=== PATIENT | female | born 1965 | race Caucasian/White ===

== ENCOUNTER → 2021-02-09 | Outpatient (REF) ==
--- NOTE | 2021-02-09 16:22 | REP ---
INDICATION: ARTHRITIS. COMPARISON: None. TECHNIQUE: Three views were obtained FINDINGS: Normal alignment. No fracture. Narrowing C4-5, C5-6 C6-7 disc spaces. Uncovertebral/facet hypertrophy. Upper lungs clear. IMPRESSION: Spondylosis. Normal alignment. No fractures. <Electronically signed by Geremias Weiner > 02/09/21 [id number]
--- NOTE | 2021-02-09 16:56 | REP ---
INDICATION: ARTHRITIS. COMPARISON: None. TECHNIQUE: Three views were obtained FINDINGS: Degenerative changes of the midfoot. Normal alignment. No fractures. Osteochondroma posterior aspect of the talus. IMPRESSION: Osteochondroma posterior aspect of the talus. Mild degenerative changes of the midfoot. <Electronically signed by Geremias Weiner > 02/09/21 [id number]
== END ==
LOC: M PLAIMG 14:40
PROVIDERS: ATTEND Internal Medicine
DX: M19.90 Unspecified osteoarthritis, unspecified site (principal)